=== PATIENT | male | born 1945 | race Caucasian/White ===

== ENCOUNTER → 2016-06-17 | Outpatient (CLI) | payer OTHER ==
[~2016-06-17] MED LIST: ALAVERT10 MG PO; ALB/IPRATROPIUM/1 E1 INH; ALBUTEROL MININEB NEB; ALBUTEROL SULFATE NEB; ALBUTEROL17 G1; ALBUTEROL17 G1 IH; ALBUTEROL17 GM IH; ALBUTEROL17 GM INH; ALDACTONE25 MG PO; ALLERCLEAR 10MG10 MG; ALLERGY SHOT INJ; ALLERGY SHOTS; ALLERGY SHOTS SUBQ; ALLOPURINOL300 MG PO; AMLODIPINE BESYL5 MG PO; AMOXICILLIN PO; AMOXICILLIN500 M1 PO; ASMANEX0.135 GM INH; ASMANEX0.24 G1; ASMANEX0.24 G1 IH; ASPIRIN PO; ASPIRIN81 M1; ASPIRIN81 M1 PO; ASPIRIN81 M2 PO; ASPIRIN81 MG PO; ATENOLOL; ATENOLOL PO; ATENOLOL25 MG PO; ATENOLOL50 MG PO; BACTROBAN22 GM TP; CALCIUM + D 6001 TA1 PO; CIPRO PO; CLARITIN10 M2 PO; CLARITIN10 MG PO; CORDARONE200 M1 PO; CYPROHEPTADINE H4 MG PO; DEMADEX PO; DEPO-TESTOTERO100 MG IM; DILAUDID4 M1 PO; DILAUDID4 MG; DILAUDID4 MG PO; DULERA 100 MCG/13 GM; DULERA 100 MCG/13 GM IH; ELIQUIS5 MG PO; FLEXERIL10 MG; FLEXERIL10 MG PO; FLORASTOR250 M1 PO; FORADIL12 MCG INH; FORADIL12 MCG NEB; FORADIL12 MCG PO; FORMOTEROL FUM0.5 GM TOP; FORTAMET1000 MG/B1 PO; FUROSEMIDE40 MG PO; GLUCOPHAGE XR500 MG PO; HI-CAL500 M1 PO; HYTRIN PO; HYTRIN10 M1 PO; IRON1 TAB PO; K-DUR10 MEQ; K-DUR10 MEQ PO; KCL PO; KEPPRA PO; KEPPRA250 MG PO; KLOR-CON PO; LASIX; LASIX PO; LEVAQUIN750 MG PO; LEVITRA; LEVITRA PO; LISINOPRIL PO; LOPRESSOR PO; LORATADINE PO; MAG-OXIDE400 MG PO; MAGNESIUM OXID200 MG PO; MAGNESIUM OXID500 MG PO; METFORMIN HCL500 M1; METFORMIN HCL500 M1 PO; METFORMIN PO; METHADONE PO; METOLAZONE5 MG PO; METOPROLOL PO; METOPROLOL TART25 MG PO; MOMETASONE FUROATE; MORPHINE IR PO; MORPHINE SULFAT60 M1 PO; MORPHINE SULFAT60 MG; MORPHINE SULFAT60 MG PO; MS CONTIN30 M1 PO; NATURAL VITA400 UNI2 PO; NORCO 10/325 TA1 TAB PO; NORVASC PO; OMALIZUMAB; OMEPRAZOLE20 M1 PO; OMEPRAZOLE20 M2 PO; OMNICEF300 M1 PO; OMNICEF300 MG PO; ORAMORPH SR60 MG PO; PACERONE PO; PERIACTIN4 MG; PERIACTIN4 MG PO; PHENERGAN W/CO120 ML PO; PLAVIX PO; POTASSIUM CHLO10 ME1 PO; POTASSIUM CHLO10 MEQ PO; POTASSIUM CL PO; PREDNISONE PO; PREDNISONE10 MG PO; PRILOSEC PO; PRILOSEC20 M1; PRILOSEC20 MG PO; SEREVENT D50 MCG/DIS PO; SIMVASTATIN40 MG; SIMVASTATIN40 MG PO; SINGULAIR; SINGULAIR PO; SPIRIVA18 MCG; SPIRIVA18 MCG INH; SPIRIVA18 MCG PO; SYMBICORT INH; SYNTHROID0.05 MG PO; TENORMIN25 MG PO; TERAZOSIN HCL10 MG; TORSEMIDE PO; VITAMIN B-121000 MCG PO; VITAMIN B12; VITAMIN B12 PO; VITAMIN D250000 UNIT PO; VITAMIN D400 UNI2; VITAMIN E200 UNIT PO; XOLAIR; XOLAIR150 MG/1.2 SUBQ; ZANAFLEX PO; ZANAFLEX2 MG PO; ZANAFLEX4 M1; ZANAFLEX4 M1 PO; ZITHROMAX PO; ZITHROMAX500 MG PO; ZOCOR PO; ZONEGRAM PO; ZONEGRAN100 M1 PO; ZONEGRAN100 MG PO; ZYLOPRIM PO; [UNRECOGNIZED DRUG - OTHER]; [UNRECOGNIZED DRUG - OTHER] INJ; [UNRECOGNIZED DRUG - OTHER] PO; [UNRECOGNIZED DRUG - OTHER] SUBQ
== END | disposition home or self-care (01) ==
LOC: CEEG 09:59
DX: R68.89 Other general symptoms and signs (principal)
CPT/HCPCS: 95816

== ENCOUNTER → 2016-09-15 | Outpatient (CLI) | payer OTHER | END | disposition home or self-care (01) | LOC: CECH 08:55 | DX: I27.2 Other secondary pulmonary hypertension (principal); J84.10 Pulmonary fibrosis, unspecified; J47.9 Bronchiectasis, uncomplicated; J96.11 Chronic respiratory failure with hypoxia; I11.9 Hypertensive heart disease without heart failure; Z99.81 Dependence on supplemental oxygen | CPT/HCPCS: 93306 ==